=== PATIENT | male | born 1980 | race Caucasian/White ===

== ENCOUNTER 2018-05-18 13:30 | Emergency (ER) | payer OTHER ==
--- NOTE | 2018-05-18 15:52 | RAD ---
RADIOGRAPH LUMBAR SPINE 3 VIEWS: DATE: 05-18-18 HISTORY: 37-year-old male with low back pain. COMPARISON: None. FINDINGS: For the purposes of this report, the level with hypoplastic ribs will be designated as T12, and the f irst completely non-rib bearing vertebra will be designated as L1. L5 has enlarged transverse processes. The left L5 transverse process is fused with the left S1 sacral ala. The L5-S1 intervertebral disc space is hypoplastic. There is moderate disc space narrowing at L 4-5, and mild disc space narrowing at L3-4. There are Schmorl's nodes at multiple levels. There is mi ld anterior wedge compression deformity of L2 vertebral body with a maximum of approximately 15-20% h eight loss anteriorly. This is of indeterminate age but is slightly favored to be chronic. Otherwise, the rest of the vertebral body heights are maintained. Alignment is normal. There is loss of lordosi s suggestive of muscle spasm. No scoliosis. IMPRESSION: 1. Transitional levels at thoracolumbar junction and lumbosacral junction. 2. Mild anterior wedge compression deformity of one of the upper vertebral bodies, of indeterminate a ge. This is slightly favored to be old. 3. Loss of lordosis, suggestive of muscle spasm. JN POS: TPC
[2018-05-18] MEDS ORDERED: Ibuprofen 200 MG TAB ONE ×2 (15:59)
== END 2018-05-18 16:06 | disposition home or self-care (01) ==
LOC: ERS 13:30
DX: M62.830 Muscle spasm of back (principal); M54.5 Low back pain; V43.52XA Car driver injured in collision with other type car in traffic accident, initial encounter
CPT/HCPCS: 72100

== ENCOUNTER 2019-03-14 16:25 | Emergency (ER) | payer OTHER ==
[2019-03-14] MEDS ORDERED: Adacel (T-DAP) 0.5 ML SYRINGE ONE (17:39)
[2019-03-14 18:02] LABS: HIV (1/2) Antibody/Antigen Non-Reactive (NonReactive); HIV 1/2 INDEX 0.09 S/CO (<1.00); Hep B Surf AB Non-Reactive (NonReactive); Hep C IgG Ab Non-Reactive (NonReactive); Hep C Index 0.07 S/CO (0-0.79)
== END 2019-03-14 17:50 | disposition home or self-care (01) ==
LOC: ERS 16:25
DX: S51.851A Open bite of right forearm, initial encounter (principal); W50.3XXA Accidental bite by another person, initial encounter
CPT/HCPCS: 36415; 86706; 86803; 87389; 90471; 90715